=== PATIENT | female | born 1995 | race Caucasian/White ===

== ENCOUNTER 2018-10-10 11:05 | Emergency (ER) | payer BC ==
[2018-10-10 11:41] VITALS: BP 107/70
--- NOTE | 2018-10-10 12:43 | UC ---
Dental HPI - HPI Summary HPI Summary: 23-year-old female presents with one-week history of progressively worsening right lower dental pain and facial swelling. States she has known significant decay of several of her teeth especially within the area of her symptoms including a fractured tooth. She has taken ibuprofen with little relief in her symptoms. She does not have an appointment with her dentist at this time. Denies fever, chills, drainage, trismus, dysphagia, or difficulty breathing. - History of Current Complaint Chief Complaint: UCUpperExtremity Stated Complaint: RT CHECK PAIN Time Seen by Provider: 10/10/18 12:22 Hx Obtained From: Patient Hx Last Menstrual Period: nexplanon Pain Intensity: 4 - Allergies/Home Medications Allergies/Adverse Reactions: Allergies Allergy/AdvReac Type Severity Reaction Status Date / Time No Known Allergies Allergy Verified 10/10/18 11:47 PMH/Surg Hx/FS Hx/Imm Hx Previously Healthy: Yes - Denies significant PMH Other History Of: Negative For: Anticoagulant Therapy - Surgical History Surgical History: Yes Surgery Procedure, Year, and Place: rt hip - Family History Known Family History: Positive: Other - ALS - Social History Occupation: Employed Full-time Lives: With Family Alcohol Use: Weekly Substance Use Type: None Smoking Status (MU): Light Every Day Tobacco Smoker Type: Cigarettes - Immunization History Most Recent Influenza Vaccination: 05/30/17 Most Recent Tetanus Shot: 10/01/12 Most Recent Pneumonia Vaccination: n/a Review of Systems All Other Systems Reviewed And Are Negative: Yes Constitutional: Negative: Fever, Chills Skin: Positive: Negative Eyes: Positive: Negative ENT: Positive: Dental Pain - See HPI Respiratory: Positive: Negative Cardiovascular: Positive: Negative Gastrointestinal: Positive: Negative Genitourinary: Positive: Negative Musculoskeletal: Positive: Negative Neurological: Positive: Negative Is Patient Immunocompromised?: No Physical Exam - Summary Physical Exam Summary: GENERAL APPEARANCE: Well developed, well nourished, alert and cooperative, and appears to be in no acute distress. EYES: Conjunctiva clear. No drainage. EARS: External auditory canals and tympanic membranes clear, hearing grossly intact. NOSE: No nasal discharge. THROAT: Pharynx normal. No tonsilar inflammation, swelling, exudate, or lesions. Uvula midline. No trismus. Multiple teeth in varying degrees of decay. Significant decay to the right lower 3rd molar. Significant decay with fracture to the right lower 1st molar. Mild gingival erythema without induration, fluctuance, or drainage at the base for the right lower 1st molar. Tenderness with swelling to the right mandible without erythema or increased warmth. NECK: Neck supple, non-tender without lymphadenopathy. CARDIAC: Normal S1 and S2. No S3, S4 or murmurs. Rhythm is regular. There is no peripheral edema, cyanosis or pallor. Extremities are warm and well perfused. Capillary refill is less than 2 seconds. Peripheral pulses intact. LUNGS: Clear to auscultation without rales, rhonchi, wheezing or diminished breath sounds. ABDOMEN: Positive bowel sounds. Soft, nondistended, nontender. No guarding or rebound. No masses or hepatosplenomegally. MUSKULOSKELETAL: ROM intact to all extremities. No joint erythema or tenderness. Normal muscular development. Normal gait. SKIN: Skin normal color, texture and turgor with no lesions or eruptions. Triage Information Reviewed: Yes Vital Signs: Initial Vital Signs Temp 98.3 F 10/10/18 11:35 Pulse 72 10/10/18 11:35 Resp 18 10/10/18 11:35 BP 107/70 10/10/18 11:35 Pulse Ox 99 10/10/18 11:35 Vital Signs Reviewed: Yes Dental Complaint Course/Dx - Course Course Of Treatment: 23-year-old female presents with one-week history of progressively worsening right lower dental pain and facial swelling. States she has known significant decay of several of her teeth especially within the area of her symptoms including a fractured tooth. She has taken ibuprofen with little relief in her symptoms. She does not have an appointment with her dentist at this time. Denies fever, chills, drainage, trismus, dysphagia, or difficulty breathing. Afebrile. Vital signs stable. Exam revealed multiple teeth in varying degrees of decay. Significant decay to the right lower 3rd molar. Significant decay with fracture to the right lower 1st molar. Mild gingival erythema without induration, fluctuance, or drainage at the base for the right lower 1st molar. Tenderness with swelling to the right mandible without erythema or increased warmth. Exam otherwise unremarkable. Will treat patient for a possible dental abscess with Augmentin 875 mg twice a day 10 days as well as symptomatic treatment. I have provided her with a prescription for naproxen 500 mg every 12 hours as needed for pain. She is to schedule an appointment with her dentist at the next available appointment. Anticipatory guidance and warning symptoms were reviewed with the patient. Verbalizes understanding and agrees with plan of care. - Differential Dx/Diagnosis Differential Diagnosis/Dx: Dental Abscess, Dental Caries, Fractured Tooth, Gingivitis, Odontogenic Pain, Peridontic Disease Provider Diagnosis: Pain, dental Discharge - Sign-Out/Discharge Documenting (check all that apply): Patient Departure All imaging exams completed and their final reports reviewed: No Studies - Discharge Plan Condition: Stable Disposition: HOME Prescriptions: Amoxicillin/Clavulanate TAB* [Augmentin TAB 875*] 875 mg PO BID #20 tab Naproxen [Naproxen 500 mg tab] 500 mg PO Q12HR #30 tablet Patient Education Materials: Toothache (ED) Forms: *Work Release Referrals: Malena Hernandez, EQUIPMENT MAINTENANCE TECHNICIAN [Primary Care Provider] - Additional Instructions: Start Augmentin 1 tab twice a day for 10 days. Take with food to avoid upset stomach. Be sure to complete the entire course even if you are feeling better. Take naproxen 500 mg 1 tab every 12 hours with food for the next 5-7 days then every 12 hour as needed for pain. Be sure to rinse your mouth out with a warm salt water solution after every time you eat to remove any debris. Make an appointment with your dentist at next available appointment. Seek immediate medical attention in the emergency room if you develop fever greater than 100.5 F, you are unable to open of close your mouth, are unable to swallow, have difficulty breathing, or any worsening of symptoms. - Billing Disposition and Condition Condition: STABLE Disposition: Home
== END 2018-10-10 13:01 | disposition home or self-care (01) ==
LOC: UCEAST 11:05 → MERGE 11:05 → UCEAST 13:01
DX: K08.89 Other specified disorders of teeth and supporting structures (principal); K03.81 Cracked tooth; K02.9 Dental caries, unspecified; F17.210 Nicotine dependence, cigarettes, uncomplicated
CPT/HCPCS: 99212; G0463

== ENCOUNTER 2019-02-19 15:56 | Observation (INO) | payer BC ==
[2019-02-19 16:31] LABS: ABS Basophils 0.1 10^3/ul (0-0.2); ABS Eosinophils 0.1 10^3/ul (0-0.6); ABS Lymphocytes 1.7 10^3/ul (1.0-4.8); ABS Monocytes 0.9 10^3/ul (0-0.8); ABS Neutrophils 11.4 10^3/ul (1.5-7.7); Eosinophil % 0.8 %; Hematocrit 38 % (35-47); Hemoglobin 13.2 g/dL (12.0-16.0); Mean Corpuscular HGB Conc 35 g/dL (31-36); Mean Corpuscular Hemoglobin 31 pg (27-31); Mean Corpuscular Volume 90 fL (80-97); Mean Platelet Volume 8.5 fL (7.4-10.4); Platelet Count 212 10^3/uL (150-450); Red Blood Count 4.19 10^6 /uL (3.70-4.87); Red Cell Distribution Width 12 % (10-15); White Blood Count 14.1 10^3/uL (3.5-10.8)
[2019-02-19 16:49] LABS: ALT 14 U/L (7-52); AST 15 U/L (13-39); Albumin/Globulin Ratio 1.8 (1-3); Alkaline Phosphatase 66 U/L (34-104); Anion Gap 7 mmol/L (2-11); BUN/Creatinine Ratio 24.6 (8-20); Blood Urea Nitrogen 16 mg/dL (6-24); C Reactive Protein 4.55 mg/L (<8.01); CO2 Carbon Dioxide 26 mmol/L (22-32); Calcium 10.4 mg/dL (8.6-10.3); Chloride 105 mmol/L (101-111); EGFR African American 134.4 (>60); EGFR Non-African American 111.1 (>60); Globulin 2.8 g/dL (2-4); Glucose 89 mg/dL (70-100); Potassium 3.8 mmol/L (3.5-5.0); Sodium 138 mmol/L (135-145); Total Protein 7.8 g/dL (6.4-8.9)
[2019-02-19 16:54] LABS: HCG Pregnancy < 0.60 mIU/mL
[2019-02-19] MEDS ORDERED: NS 0.9% 1000 ML** 1,000 ML IV ONE (18:04)
[2019-02-19] MEDS ORDERED: Ondansetron INJ* 2 MG/ML VIAL IV ONE (18:04)
[2019-02-19] MEDS ORDERED: Morphine 4 MG/ML VIAL (1 ml) 4 MG/ML VIAL IV ONE ×2 (18:04→21:18)
--- NOTE | 2019-02-19 18:11 | ED ---
Abdominal Pain/Female - HPI Summary HPI Summary: This patient is a 24 year old F [facility] accompanied by with a chief complaint of lower abdominal since night of 02/18/19. Began as cramping abdominal pain, but the pain worsened over time and today she could barely move around. Per triage, the patient rates the pain 10/10 in severity. Patient reports fevers, chills, nausea, loss of appetite. Patient denies vomiting, diarrhea, constipation, vaginal symptoms, dysuria, and hematuria. The last time pt ate was this morning. - History of Current Complaint Chief Complaint: EDAbdPain Stated Complaint: ABD PAIN PER PT Time Seen by Provider: 02/19/19 17:57 Hx Obtained From: Patient Hx Last Menstrual Period: doesn't get them Onset/Duration: Lasting Hours, Still Present Timing: Constant Severity Initially: Moderate Severity Currently: Severe Pain Intensity: 10 Pain Scale Used: 0-10 Numeric Location: Discrete At: RLQ Radiates: No Aggravating Factor(s): Nothing Alleviating Factor(s): Nothing Associated Signs and Symptoms: Positive: Fever, Decreased Appetite, Nausea. Negative: Urinary Symptoms, Vaginal Bleeding, Vaginal Discharge, Vomiting, Diarrhea, Other: - constipation Allergies/Adverse Reactions: Allergies Allergy/AdvReac Type Severity Reaction Status Date / Time gluten Allergy Headache Verified 02/20/19 08:21 morphine Allergy Hives/itchi Verified 02/19/19 21:54 ng Home Medications: Home Medications Etonogestrel [Nexplanon] 68 mg IMPLANT ONCE 02/19/19 [History Confirmed 02/19/19 ] PMH/Surg Hx/FS Hx/Imm Hx Endocrine/Hematology History: Denies: Hx Anticoagulant Therapy, Hx Diabetes, Hx Thyroid Disease Cardiovascular History: Denies: Hx Hypertension, Hx Pacemaker/ICD Respiratory History: Denies: Hx Asthma, Hx Chronic Obstructive Pulmonary Disease (COPD) History: Denies: Hx Kidney Infection, Hx Renal Disease, Other Problems/Disorders Sensory History: Denies: Hx Hearing Aid Neurological History: Denies: Hx Dementia, Hx Seizures Psychiatric History: Denies: Hx Anxiety, Hx Depression, Hx Panic Disorder, Hx Substance Abuse, Other Psychiatric Issues/Disorders - Surgical History Surgery Procedure, Year, and Place: rt hip 2014 Infectious Disease History: Unable to Obtain/Confirm Infectious Disease History: Denies: Hx Hepatitis, Hx Human Immunodeficiency Virus (HIV), Traveled Outside the [place] in Last 30 Days - Family History Known Family History: Positive: Other - ALS - Social History Alcohol Use: Weekly Hx Substance Use: No Substance Use Type: Reports: None Hx Tobacco Use: No Smoking Status (MU): Light Every Day Tobacco Smoker Type: Cigarettes Review of Systems Positive: Fever, Chills, Other - loss of appetite Positive: Nausea. Negative: Vomiting, Diarrhea, Other - Constipation Negative: dysuria, discharge, hematuria All Other Systems Reviewed And Are Negative: Yes Physical Exam - Summary Physical Exam Summary: Constitutional: Well-developed, Well-nourished, Alert. (-) Distressed Skin: Warm, Dry HENT: Normocephalic; Atraumatic Eyes: Conjunctiva normal Neck: Musculoskeletal ROM normal neck. (-) JVD, (-) Stridor, (-) Tracheal deviation Cardio: Rhythm regular, rate normal, Heart sounds normal; Intact distal pulses; The pedal pulses are 2+ and symmetric. Radial pulses are 2+ and symmetric. (-) Murmur Pulmonary/Chest wall: Effort normal. (-) Respiratory distress, (-) Wheezes, (-) Rales Abd: Soft, RLQ pain at the mcburney's point, Negative rovsing sign. Positive obturator sign (-) Distension, (-) Guarding, (-) Rebound Musculoskeletal: (-) Edema Lymph: (-) Cervical adenopathy Neuro: Alert, Oriented x3 Psych: Mood and affect Normal Triage Information Reviewed: Yes Vital Signs On Initial Exam: Initial Vitals Temp Pulse Resp BP Pulse Ox 98.6 F 88 18 136/85 98 02/19/19 15:57 02/19/19 15:57 02/19/19 15:57 02/19/19 15:57 02/19/19 15:57 Vital Signs Reviewed: Yes Diagnostics - Vital Signs Vital Signs Temp Pulse Resp BP Pulse Ox 02/19/19 17:39 99.4 F 77 18 113/72 97 02/19/19 15:57 98.6 F 88 18 136/85 98 - Laboratory Lab Results: Lab Results 02/19/19 02/19/19 02/19/19 Range/Units 16:25 16:25 16:25 WBC 14.1 H (3.5-10.8) 10^3/uL RBC 4.19 (3.70-4.87) 10^6 /uL Hgb 13.2 (12.0-16.0) g/dL Hct 38 (35-47) % MCV 90 (80-97) fL MCH 31 (27-31) pg MCHC 35 (31-36) g/dL RDW 12 (10-15) % Plt Count 212 (150-450) 10^3/uL MPV 8.5 (7.4-10.4) fL Neut % (Auto) 80.6 % Lymph % (Auto) 12.0 % [place] % (Auto) 6.2 % Eos % (Auto) 0.8 % Baso % (Auto) 0.4 % Absolute Neuts (auto) 11.4 H (1.5-7.7) 10^3/ul Absolute Lymphs (auto) 1.7 (1.0-4.8) 10^3/ul Absolute Monos (auto) 0.9 H (0-0.8) 10^3/ul Absolute Eos (auto) 0.1 (0-0.6) 10^3/ul Absolute Basos (auto) 0.1 (0-0.2) 10^3/ul Absolute Nucleated RBC 0.0 10^3/ul Nucleated RBC % 0.0 Sodium 138 (135-145) mmol/L Potassium 3.8 (3.5-5.0) mmol/L Chloride 105 (101-111) mmol/L Carbon Dioxide 26 (22-32) mmol/L Anion Gap 7 (2-11) mmol/L BUN 16 (6-24) mg/dL Creatinine 0.65 (0.51-0.95) mg/dL Est GFR ( Amer) 134.4 (>60) Est GFR (Non-Af Amer) 111.1 (>60) BUN/Creatinine Ratio 24.6 H (8-20) Glucose 89 (70-100) mg/dL Lactic Acid 0.7 (0.5-2.0) mmol/L Calcium 10.4 H (8.6-10.3) mg/dL Total Bilirubin 0.60 (0.2-1.0) mg/dL AST 15 (13-39) U/L ALT 14 (7-52) U/L Alkaline Phosphatase 66 (34-104) U/L C-Reactive Protein 4.55 (<8.01) mg/L Total Protein 7.8 (6.4-8.9) g/dL Albumin 5.0 (3.2-5.2) g/dL Globulin 2.8 (2-4) g/dL Albumin/Globulin Ratio 1.8 (1-3) Lipase 23 (11.0-82.0) U/L Beta HCG, Quant < 0.60 mIU/mL Result Diagrams: 02/19/19 16:25 02/19/19 16:25 Lab Statement: Any lab studies that have been ordered have been reviewed, and results considered in the medical decision making process. - CT Abdomen/Pelvis CT CT Interpretation Completed By: Radiologist Summary of CT Findings: Abdomen/Pelvis CT reveals, per radiologist, IMPRESSION: The appendix is dilated measuring 8.5 mm diameter, fluid filled and with appendiceal wall thickening and mild periappendiceal fat stranding suspicious for acute appendicitis without signs of perforation. ED physician has reviewed this radiology report. Re-Evaluation - Re-Evaluation First Eval Re-Evaluation Time: 19:12 Comment: Pt developed a rash. Second Eval Re-Evaluation Time: 21:51 Comment: Discussed results with pt. Abdominal Pain Fem Course/Dx - Course Course Of Treatment: Patient is here with symptoms consistent with appendicitis. Patient has leukocytosis. Patient had a CT scan showing uncomplicated appendicitis. Surgery was assaulted and took patient to the OR. - Diagnoses Provider Diagnoses: Acute appendicitis - Provider Notifications Discussed Care Of Patient With: Robert Mckeon Time Discussed With Above Provider: 21:53 Instructed by Provider To: Other - Discussed case with Dr. Mckeon, who will see pt, and will probably operate tonight Discharge ED - Sign-Out/Discharge Documenting (check all that apply): Patient Departure - Admit Patient Received Moderate/Deep Sedation with Procedure: No - Discharge Plan Condition: Stable Disposition: ADMITTED TO [facility] - Billing Disposition and Condition Condition: STABLE Disposition: Admitted to [facility] - Attestation Statements Document Initiated by Scribe: Yes Documenting Scribe: Misty Jackson Provider For Whom Scribe is Documenting (Include Credential): Mahamed Ibarra MD Scribe Attestation: Misty Leavitt, scribed for Mahamed Ibarra MD on 02/20/19 at 1057. Scribe Documentation Reviewed: Yes Provider Attestation: The documentation as recorded by the scribe, Misty Jackson accurately reflects the service I personally performed and the decisions made by me, Mahamed Ibarra MD Status of Scribe Document: Viewed
[2019-02-19] MEDS ORDERED: diPHENhydraMINE IV* 50 MG/ML 1 ml VIAL (BENADRYL) IV ONE (19:11)
[2019-02-19 19:48] LABS: Urine Appearance Clear; Urine Bilirubin Negative (Negative); Urine Blood Negative (Negative); Urine Color Colorless; Urine Glucose Negative (Negative); Urine Ketones Negative (Negative); Urine Nitrite Negative (Negative); Urine Protein Negative (Negative); Urine Specific Gravity 1.002 (1.010-1.030); Urine Urobilinogen Negative (Negative)
[2019-02-19] MEDS ORDERED: Iohexol 300* (CONTRAST) 10 ML SDV IV ONE (20:28)
[2019-02-19] MEDS ORDERED: ceFOXitin 2 GM IVPREMIX* 2 GM/50 ML BAG IVPB ONE (23:00)
[2019-02-19] MEDS ORDERED: diPHENhydraMINE IV* 50 MG/ML 1 ml VIAL (BENADRYL) IV PRN (23:11)
[2019-02-19] MEDS ORDERED: Naloxone* 0.4 MG/ML 1 ML VIAL IV PRN (23:11)
[2019-02-19] MEDS ORDERED: Levalbuterol 0.63MG/3ML NEB* UNIT OF USE INH PRN (23:11)
[2019-02-19] MEDS ORDERED: DiMENhydriNATE IV* 50 MG/ML VIAL IV PUSH PRN (23:11)
[2019-02-19] MEDS ORDERED: Ondansetron INJ* 2 MG/ML VIAL IV PRN ×2 (23:11→23:29)
[2019-02-19] MEDS ORDERED: fentaNYL* 50 MCG/ML 2 ML VIAL (100 MCG VIAL) IV PRN (23:11)
--- NOTE | 2019-02-19 23:14 | HP ---
H&P (Free Text) History and Physical: CC: RLQ abdominal pain HPI: 24 yo F presented to [facility] with a 24 hr h/o progressive RLQ abdominal pain starting after dinner last night. She was initially "uncomfortable" and it woke her up from sleep at one point. She had breakfast this morning but then had nausea and anorexia and so didn't have lunch. She worked as usual but was in severe pain at 3 pm. Pain provoked by movement or bumps in the car. She noted fever to 100F. She had 2 normal BMs, no diarrhea, no dysuria or hematuria. No h/o recent travel. She came to [facility] at 6 pm. She had leukocytosis and a CT confirms acute appendicitis. PMH: R hip bone spur; ovarian cyst age 15; headaches. PSH: R hip surgery Meds: ibuprofen 800mg daily prn; Implanon All: morphine causes itching and hives SH: ; +tob (<5 pk/yr); occasional EtOH; no drugs FH: Father of ALS age 36; Mother has HTN age 50's; 2 sisters/1 brother alive and well. ROS: Completed and findings as above; otherwise 12 system review was negative. Vital Signs Temp 99.4 F 02/19/19 17:39 Pulse 81 02/19/19 22:37 Resp 16 02/19/19 21:23 BP 123/79 02/19/19 22:37 Pulse Ox 98 02/19/19 22:37 Gen: NAD; WDWN F HEENT: NCAT; EOMI; no izabel/rhinorrhea Neck: symmetrical; supple; ML trachea Lungs: CTA B Heart: reg s1s2; no murmur Abd: no scars; ND; +BS; soft; tender in RLQ with +Rovsing sx Ext: warm; no c/c/e Intake & Output 02/19/19 02/19/19 02/20/19 06:59 18:59 06:59 Intake Total 1000 Balance 1000 Weight 135 lb Intake: IV Fluids 1000 Laboratory Results - last 24 hr 02/19/19 02/19/19 02/19/19 16:25 16:25 16:25 WBC 14.1 H RBC 4.19 Hgb 13.2 Hct 38 MCV 90 MCH 31 MCHC 35 RDW 12 Plt Count 212 MPV 8.5 Neut % (Auto) 80.6 Lymph % (Auto) 12.0 [place] % (Auto) 6.2 Eos % (Auto) 0.8 Baso % (Auto) 0.4 Absolute Neuts (auto) 11.4 H Absolute Lymphs (auto) 1.7 Absolute Monos (auto) 0.9 H Absolute Eos (auto) 0.1 Absolute Basos (auto) 0.1 Absolute Nucleated RBC 0.0 Nucleated RBC % 0.0 Sodium 138 Potassium 3.8 Chloride 105 Carbon Dioxide 26 Anion Gap 7 BUN 16 Creatinine 0.65 Est GFR ( Amer) 134.4 Est GFR (Non-Af Amer) 111.1 BUN/Creatinine Ratio 24.6 H Glucose 89 Lactic Acid 0.7 Calcium 10.4 H Total Bilirubin 0.60 AST 15 ALT 14 Alkaline Phosphatase 66 C-Reactive Protein 4.55 Total Protein 7.8 Albumin 5.0 Globulin 2.8 Albumin/Globulin Ratio 1.8 Lipase 23 Beta HCG, Quant < 0.60 Urine Color Urine Appearance Urine pH Ur Specific Cassandra Urine Protein Urine Ketones Urine Blood Urine Nitrate Urine Bilirubin Urine Urobilinogen Ur Leukocyte Esterase Urine Glucose 02/19/19 19:06 WBC RBC Hgb Hct MCV MCH MCHC RDW Plt Count MPV Neut % (Auto) Lymph % (Auto) [place] % (Auto) Eos % (Auto) Baso % (Auto) Absolute Neuts (auto) Absolute Lymphs (auto) Absolute Monos (auto) Absolute Eos (auto) Absolute Basos (auto) Absolute Nucleated RBC Nucleated RBC % Sodium Potassium Chloride Carbon Dioxide Anion Gap BUN Creatinine Est GFR ( Amer) Est GFR (Non-Af Amer) BUN/Creatinine Ratio Glucose Lactic Acid Calcium Total Bilirubin AST ALT Alkaline Phosphatase C-Reactive Protein Total Protein Albumin Globulin Albumin/Globulin Ratio Lipase Beta HCG, Quant Urine Color Colorless Urine Appearance Clear Urine pH 6.0 Ur Specific Cassandra 1.002 L Urine Protein Negative Urine Ketones Negative Urine Blood Negative Urine Nitrate Negative Urine Bilirubin Negative Urine Urobilinogen Negative Ur Leukocyte Esterase Negative Urine Glucose Negative CT images reviewed. Impression: 24 yo F with acute appendicitis. Plan/Recommendation: Findings discussed with patient and . Management options explained and laparoscopic appendectomy recommended. Discussion included expectations regarding hospitalization, time for recovery and return to work (1-2 weeks). Procedure, indications, risks, benefits, alternatives and option of no treatment discussed. Risks explained including, but not limited to : bleeding, infection, pain, scars, blood clots, pneumonia, nausea, vomiting, open surgery, and risk of GETA. All questions answered. The patient stated understanding and agrees to proceed. NPO. IVF. Cefoxitin preop.
[2019-02-19] MEDS ORDERED: Cisatracurium* 2 MG/ML MDV 5 ML ONE (23:19)
[2019-02-19] MEDS ORDERED: Succinylcholine* 20 MG/ML 10 ML VIAL ONE (23:19)
[2019-02-19] MEDS ORDERED: Midazolam* 1 MG/ML 2 ML VIAL (2 MG) ONE (23:19)
[2019-02-19] MEDS ORDERED: Propofol* 10 MG/ML 20 ML BTL ONE (23:19)
[2019-02-19] MEDS ORDERED: Dexamethasone IV* 4 MG/ML 1 ML (4 MG) ONE (23:19)
[2019-02-19] MEDS ORDERED: fentaNYL* 50 MCG/ML 2 ML VIAL (100 MCG VIAL) ONE (23:19)
[2019-02-19] MEDS ORDERED: NS 0.9% 50 ML* 50 ML ONE (23:22)
[2019-02-19] MEDS ORDERED: Lidocaine 2% PF * 5 ML VIAL ONE (23:22)
[2019-02-19] MEDS ORDERED: Famotidine IV* 10 MG/ML 2 ML (20 mg) ONE (23:26)
[2019-02-19] MEDS ORDERED: Ibuprofen TAB* 800 MG PO PRN (23:28)
[2019-02-19] MEDS ORDERED: HYDROmorphone INJ1* 1 MG/ML SYRINGE IV SLOW PU PRN (23:29)
[2019-02-19] MEDS ORDERED: ceFOXitin(*) 2 GM in NS 0.9% 50 ML* 50 ML IVPB ONE (23:30)
[2019-02-19] MEDS ORDERED: ETONOGESTREL 68 MG IMPLANT SCH (23:30)
--- NOTE | 2019-02-19 23:37 | BRIEFOPN ---
Brief Operative/Procedure Note - Operation Details Pre-Op Diagnosis: ACUTE APPENDICITIS Post-Op Diagnosis: SAME Procedures: LAPAROSCOPIC APPENDECTOMY Surgeon(s)/Proceduralists: MARICRUZ Anesthesia: GET; YO. LLJ=130QV LR Estimated Blood Loss: <10ml Findings: ABOVE Specimen(s)/Culture(s) Description: APPENDIX Complications: NONE
[2019-02-19] MEDS ORDERED: Lactated Ringers 1000 ML Bag* 1,000 ML IV SCH (23:45)
[2019-02-19] MEDS ORDERED: Bupivacaine 0.25% EPI 200,000* 30 ML SDV ONE (23:46)
[2019-02-19] MEDS ORDERED: diPHENhydraMINE IV* 50 MG/ML 1 ml VIAL (BENADRYL) ONE (23:57)
[2019-02-20] MEDS ORDERED: Ketorolac INJ* 30 MG/ML 1 ML VIAL ONE (00:19)
[2019-02-20] MEDS ORDERED: diPHENhydraMINE PO* 50 MG PO PRN (00:34)
[2019-02-20] MEDS: Lactated Ringers 1000 ML Bag* 1,000 ML IV SCH ×2 (00:44→02:31)
[2019-02-20] MEDS ORDERED: HYDROcodone/ACETAMIN 5-325 MG* 1 TAB ONE (01:44)
[2019-02-20] MEDS: HYDROcodone/ACETAMIN 5-325 MG* 1 TAB PO PRN ×3 (01:45→09:15)
--- NOTE | 2019-02-20 02:55 | OP ---
CC: Malena Hernandez NP * DATE OF OPERATION: 02/19/19 - ROOM #334 DATE OF : 89 SURGEON: Robert Mckeon MD TEAM PSYCHOLOGIST: None. ANESTHESIOLOGIST: Dr. Avendano. ANESTHESIA: General endotracheal. PRE-OP DIAGNOSIS: Acute appendicitis. POST-OP DIAGNOSIS: Acute appendicitis. OPERATIVE PROCEDURE: Laparoscopic appendectomy. ESTIMATED BLOOD LOSS: Less than 10 mL. IV FLUIDS: 600 mL crystalloid. SPECIMEN: Appendix. DRAINS: None. COMPLICATIONS: None. COUNTS: Instrument, needle, and sponge counts were correct. DESCRIPTION OF PROCEDURE: The patient was brought to the operating room and placed on table supine. Sequential compression devices were placed on both lower extremities. General anesthesia was administered. She was prepped and draped in usual sterile fashion. She received appropriate intravenous antibiotics. After time-out was performed, local anesthetic was infiltrated into the skin and soft tissue prior to each incision being made. Entry to the abdomen was through a transumbilical vertical incision using an open technique. After accessing the peritoneal cavity, a 12-mm trocar was placed and carbon dioxide was insufflated to pressure of 15 mmHg. Under direct visualization, 5-mm trocars were placed in the suprapubic midline and in left lower quadrant. The cecum was lying in the pelvis and was able to be moved cephalad slipping it upon itself. The appendix became immediately visible. It was acutely inflamed with early changes. No suppuration or gangrene. The appendix was elevated. A window created in the mesentery of the appendix at the base. The appendix was divided from the cecum with an Endo EDWIN stapler with prater cartridge. The appendix mesentery was divided with an Endo EDWIN stapler with the martinez cartridge. The appendix was placed into retrieval bag and retrieved through the umbilical site. Hemostasis was assured. Umbilical site was closed with 0 Vicryl in [id number] fashion to approximate the fascia. The skin incisions were closed with 4-0 Monocryl in subcuticular fashion. DermaFlex was applied. The patient tolerated the procedure well, was extubated and transferred to Recovery stable. [id number]/[facility] #: [id number] MTDD
[2019-02-20 08:34] VITALS: BP 98/54
[2019-02-20] MEDS ORDERED: Influenza VAC *QUAD* 2019-20* 0.5 ML SYRINGE IM ONE (09:00)
--- NOTE | 2019-02-20 09:02 | DS ---
CC: Malena Hernandez NP * DISCHARGE SUMMARY: DATE OF ADMISSION: 02/19/19 DATE OF DISCHARGE: 02/20/19 DISCHARGE DIAGNOSIS: Acute appendicitis. PROCEDURE: Laparoscopic appendectomy on 02/20/19. HOSPITAL COURSE: This is a 24-year-old generally healthy female who presented to the [facility] Emergency Room with a 24-hour history of progressive abdominal pain localized to the right lower quadrant associated with leukocytosis, nausea, anorexia, and low-grade fever. She had a CT scan that confirmed the diagnosis of acute appendicitis and she was taken emergently to the operating room for laparoscopic appendectomy. Please refer to the operative report for full details. The patient's postoperative course was uneventful. She advanced in her diet. She had pain controlled with oral medications. Was able to ambulate and void without much difficulty. She was felt to be stable for discharge home on 02/20/19. The patient's pathology was pending at the time of discharge, there were no other tests pending. She was instructed to follow up in 7 to 10 days in [facility] office. Medications, diet, and activity instructions were reviewed. CONDITION: Stable. DISPOSITION: Home. /[id number]/[facility] #: [id number] MTDD
[2019-02-20] MEDS ORDERED: HYDROcodone/ACETAMIN 5-325 MG* 1 TAB PO ONE (10:00)
[2019-02-20] MEDS ORDERED: HYDROcodone/ACETAMIN 5-325 MG* 1 TAB PO PRN (10:00)
== END 2019-02-20 11:10 | disposition home or self-care (01) ==
LOC: ED 15:56 → OR 02-20 01:09 → SSU 02-20 02:33
PROVIDERS: ADMIT Surgery; ATTEND Surgery
DX: K35.80 Unspecified acute appendicitis (principal); R10.31 Right lower quadrant pain; Z79.899 Other long term (current) drug therapy; F17.210 Nicotine dependence, cigarettes, uncomplicated
CPT/HCPCS: 36415; 74177; 80053; 81003; 83605; 83690; 84702; 85025; 86140; 88304; 90471; 90686; 96361; 96374; 96375; 96376; 99283; A9270-GY; C1776; G0008; G0378; J0330; J0694; J1100; J1170; J1200; J1885; J2250; J2270; J2405; J2704; J3010; Q9967

== ENCOUNTER 2019-09-24 09:36 | Day surgery (SDC) | payer BC ==
[~2019-09-24 09:36] MED LIST: Buffered Lidocaine 1% SYRIN* 1 ML/SYRINGE INTRADERM ONE; Lactated Ringers 1000 ML Bag* 1,000 ML IV SCH
[2019-09-24] MEDS ORDERED: Levofloxacin 750 MG IVPREMIX(* 750 MG/150 ML BAG ONE (09:57)
[2019-09-24] MEDS ORDERED: Buffered Lidocaine 1% SYRIN* 1 ML/SYRINGE INTRADERM ONE (09:57)
[2019-09-24] MEDS ORDERED: Lidocaine 1% w EPI 1:100,000* MDV 20 ML VIAL ONE (11:09)
[2019-09-24] MEDS ORDERED: Midazolam* 1 MG/ML 2 ML VIAL (2 MG) ONE ×2 (11:15→12:17)
[2019-09-24] MEDS ORDERED: diPHENhydraMINE IV* 50 MG/ML 1 ml VIAL (BENADRYL) ONE (11:29)
[2019-09-24] MEDS ORDERED: ceFAZolin 2 GM PREMIX in ORs 2 GM/50 ML BAG ONE (11:35)
[2019-09-24] MEDS ORDERED: Lidocaine 2% PF * 5 ML VIAL ONE (11:41)
[2019-09-24] MEDS ORDERED: Propofol* 10 MG/ML 20 ML BTL ONE (11:41)
[2019-09-24] MEDS ORDERED: oxyCODONE TAB* 5 MG TAB PO PRN (12:10)
[2019-09-24] MEDS ORDERED: Acetaminophen TAB* 325 MG PO PRN (12:10)
[2019-09-24] MEDS ORDERED: Naloxone* 0.4 MG/ML 1 ML VIAL IV PRN (12:10)
[2019-09-24] MEDS ORDERED: Ketorolac INJ* 30 MG/ML 1 ML VIAL IV PRN (12:10)
[2019-09-24] MEDS ORDERED: Ondansetron INJ* 2 MG/ML VIAL IV PRN (12:10)
[2019-09-24] MEDS ORDERED: Ketorolac INJ* 30 MG/ML 1 ML VIAL ONE (12:43)
[2019-09-24] MEDS ORDERED: oxyCODONE TAB* 5 MG TAB ONE (13:03)
[2019-09-24 13:51] VITALS: BP 128/64
== END 2019-09-24 14:13 | disposition home or self-care (01) ==
LOC: OR 09:36
PROVIDERS: ATTEND Plastic Surgery
DX: L02.11 Cutaneous abscess of neck (principal)
CPT/HCPCS: 81025; 88305; A9270-GY; J0690; J1200; J1885; J2250; J2704